=== PATIENT | male | born 1995 ===

== ENCOUNTER 2017-03-24 10:43 | Day surgery (SDC) | payer BC ==
[~2017-03-24 10:43] MED LIST: Buffered Lidocaine 1% SYRIN* 3 ML/SYR SYRINGE INTRADERM ONE; Famotidine IV* 10 MG/ML 2 ML (20 mg) IV ONE; Metoclopramide TAB* 10 MG PO ONE
[2017-03-24] MEDS ORDERED: Famotidine IV* 10 MG/ML 2 ML (20 mg) ONE (10:48)
[2017-03-24] MEDS ORDERED: Metoclopramide TAB* 10 MG ONE (10:48)
[2017-03-24] MEDS ORDERED: ceFAZolin 2 GM PREMIX(*) 2 GM/50 ML BAG IVPB ONE (10:51)
[2017-03-24] MEDS ORDERED: Ondansetron INJ* 2 MG/ML VIAL ONE (11:34)
[2017-03-24] MEDS ORDERED: KETAMINE HCL* 50 MG/ML 10 ML VIAL ONE (11:34)
[2017-03-24] MEDS ORDERED: Dexamethasone IV* 4 MG/ML 1 ML (4 MG) ONE (11:34)
[2017-03-24] MEDS ORDERED: fentaNYL* 50 MCG/ML 2 ML VIAL (100 MCG VIAL) ONE (11:34)
[2017-03-24] MEDS ORDERED: Propofol* 10 MG/ML 20 ML BTL IV PUSH ONE (11:34)
[2017-03-24] MEDS ORDERED: Lidocaine 2% PF * 5 ML VIAL ONE (11:34)
[2017-03-24] MEDS ORDERED: Lidocain 1% EPI 1:100,000 * 30 ML MDV ONE (11:35)
[2017-03-24] MEDS ORDERED: Bacitracin OINTMENT* 1 TUBE ONE (11:35)
[2017-03-24] MEDS ORDERED: Midazolam* 1 MG/ML 5 ML VIAL (5 MG) ONE (11:35)
[2017-03-24] MEDS ORDERED: BSS OPTH.SOL* BTL ONE (11:35)
[2017-03-24] MEDS ORDERED: Methylene Blue 1%* 10 ML VIAL ONE (11:36)
[2017-03-24] MEDS ORDERED: Mineral Oil Sterile, TOPICAL* 25 ML BTL ONE (11:36)
[2017-03-24] MEDS ORDERED: Midazolam* 1 MG/ML 2 ML VIAL (2 MG) ONE (12:08)
[2017-03-24] MEDS ORDERED: fentaNYL* 50 MCG/ML 2 ML VIAL (100 MCG VIAL) IV PRN (12:38)
[2017-03-24] MEDS ORDERED: Ondansetron INJ* 2 MG/ML VIAL IV PRN (12:38)
[2017-03-24] MEDS ORDERED: oxyCODONE/Acetamin 5/325 MG* TAB PO PRN (12:38)
[2017-03-24 13:24] VITALS: BP 104/61
== END 2017-03-24 14:20 | disposition home or self-care (01) ==
LOC: OREAST 10:43
PROVIDERS: ATTEND Plastic Surgery
DX: Q82.8 Other specified congenital malformations of skin (principal)
CPT/HCPCS: 88305; A9270-GY; J0690; J1100; J2250; J2405; J2704; J3010